=== PATIENT | male | born 1985 | race Two or more races ===

== ENCOUNTER 2023-11-08 20:11 | Emergency (ER) | payer OTHER ==
[~2023-11-08] VITALS: Ht 175.3 cm; Wt 86.0 kg
[2023-11-08 20:11] VITALS: BP 154/95; PULSE 84; RESP 18; TEMP 98; O2SAT 98
[2023-11-09] MEDS: TETRACAINE HCL 0.5% OPTH(EYE) SOLN 4ML RIGHTEYE ONE (02:19)
[2023-11-09] MEDS: FLUORESCEIN SOD OPTH TEST STRIP RIGHTEYE ONE (02:19)
[2023-11-09] MEDS ORDERED: ERY05OO OP (02:28)
== END 2023-11-09 03:05 | disposition home or self-care (01) ==
LOC: ER 20:11
DX: S05.01XA Injury of conjunctiva and corneal abrasion without foreign body, right eye, initial encounter (principal); T15.91XA Foreign body on external eye, part unspecified, right eye, initial encounter; I10 Essential (primary) hypertension; Z88.0 Allergy status to penicillin; X58.XXXA Exposure to other specified factors, initial encounter; Y93.89 Activity, other specified; Y92.89 Other specified places as the place of occurrence of the external cause; Y99.8 Other external cause status
CPT/HCPCS: 65222